=== PATIENT | female | born 1980 | race Two or more races ===

== ENCOUNTER 2023-05-24 11:53 | Outpatient (CLI) | payer OTHER | END 2023-05-24 12:05 | disposition home or self-care (01) | LOC: SONOGRAMA 11:53 | PROVIDERS: ATTEND Surgery | DX: D24.1 Benign neoplasm of right breast (principal); N60.11 Diffuse cystic mastopathy of right breast; N60.12 Diffuse cystic mastopathy of left breast ==

== ENCOUNTER 2025-03-01 14:37 | Outpatient (CLI) | payer OTHER | END 2025-03-01 14:39 | disposition home or self-care (01) | LOC: SONOGRAMA 14:37 | PROVIDERS: ATTEND Pathology Anatomic Pathology & Clinical Pathology | DX: D44.0 Neoplasm of uncertain behavior of thyroid gland (principal); E04.1 Nontoxic single thyroid nodule ==